=== PATIENT | female | born 2005 | race Caucasian/White ===

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

== ENCOUNTER 2023-11-23 14:56 | Emergency (ER) | payer MEDICAID ==
[~2023-11-23] VITALS: Ht 160 cm; Wt 66.0 kg
[2023-11-23 15:24] VITALS: O2SAT 98
[2023-11-23] MEDS: IBUPROFEN 600MG TABLET PO ONE (16:54)
[2023-11-23] MEDS ORDERED: NAPR220C61 MT (18:28)
[2023-11-23 19:10] VITALS: BP 124/64; PULSE 78; RESP 16; TEMP 98
== END 2023-11-23 19:40 | disposition home or self-care (01) ==
LOC: ER 14:56
DX: S52.122A Displaced fracture of head of left radius, initial encounter for closed fracture (principal); F41.9 Anxiety disorder, unspecified; G89.11 Acute pain due to trauma; V49.49XA Driver injured in collision with other motor vehicles in traffic accident, initial encounter; Y93.89 Activity, other specified; Y92.89 Other specified places as the place of occurrence of the external cause; Y99.8 Other external cause status
CPT/HCPCS: 29105; 73060; 73080; 73090; 99284; A4565

== ENCOUNTER 2024-08-20 19:15 | Emergency (ER) | payer MEDICAID ==
[~2024-08-20] VITALS: Ht 147.3 cm; Wt 61.0 kg
[~2024-08-20 19:15] MED LIST changes: +NAPR220C61 MT
[2024-08-20 19:29] VITALS: O2SAT 99
[2024-08-20 22:03] VITALS: BP 129/89; PULSE 91; RESP 18; TEMP 36.8; O2SAT 99
== END 2024-08-20 22:04 | disposition home or self-care (01) ==
LOC: ER 19:15
DX: B34.9 Viral infection, unspecified (principal); I10 Essential (primary) hypertension; F41.9 Anxiety disorder, unspecified; Z79.899 Other long term (current) drug therapy
CPT/HCPCS: 71045; 99283